=== PATIENT | male | born 1940 | race Caucasian/White ===

== ENCOUNTER 2017-05-27 08:14 | Outpatient (CLI) | payer MEDICARE ==
[~2017-05-27 08:14] MED LIST: Iopamidol 370 76% 100 ML VIAL ONE
--- NOTE | 2017-05-27 10:33 | CT ---
CT ABDOMEN WITH AND WITHOUT CONTRAST: 05/27/2017 HISTORY: Mildly enlarging, complex left renal cyst, measuring up to 1.5 cm, noted on recent CT exam. History of prior right renal lesion, surgically removed. COMPARISON: 04/25/2009 TECHNIQUE: Serial axial CT imaging obtained at 5 mm intervals through the abdomen, with and without IV contrast, using a renal mass protocol. Coronal reformatted imaging of the nephrographic phase provided. FINDINGS: The imaged lung bases appear unremarkable. The liver, gallbladder, spleen, pancrease, and adrenal glands are unremarkable. The right kidney demonstrates a mild/subtle area of cortical thinning, laterally, likely postoperativ e in nature. There is a tiny hypodensity emanating from the upper pole of the right kidney, too small to fully yolanda racterize, measuring in the 6 mm range, unchanged when compared to the 2008 exam, suggesting a probab le tiny cyst. No stone, hydronephrosis, or suspicious mass seen involving the right kidney. There is a low density lesion in the lateral mid pole left kidney, measuring up to 1.5 cm. Pre-contr ast Hounsfield units of this lesion are 8-9. In the nephrographic phase imaging, its Hounsfield unit s measure in the 12-13 range. In the urographic phase, its Hounsfield units measure in the 9-10 rang e, consistent with no significant enhancement. The urographic phase imaging of the abdomen is unremarkable bilaterally. There is scattered atherosclerotic calcification of the abdominal aorta and its branches. There is n o lymphadenopathy apparent within the abdomen, and no acute osseous abnormality is seen. There is mu ltilevel significant degenerative change involving the thoracic spine and imaged lumbar spine, with n o worrisome lytic or blastic bone lesions. IMPRESSION: Low density mid pole left renal lesion with no appreciable enhancement, measuring up to 1.5 cm, most consistent with a cyst. Recommend continued followup via ultrasound. POS: [facility]
== END 2017-05-27 08:15 | disposition home or self-care (01) ==
LOC: CT 08:14
PROVIDERS: ATTEND Urology
DX: D30.01 Benign neoplasm of right kidney (principal); Q61.01 Congenital single renal cyst
CPT/HCPCS: 74170

== ENCOUNTER 2017-11-30 08:31 | Outpatient (CLI) | payer MEDICARE ==
[2017-11-30 08:48] LABS: #Eosinphils 0.4 thou/uL (0.0-0.7); #Lymphocytes 1.4 thou/uL (1.20-3.40); #Monocytes 0.5 thou/uL (0.11-0.59); #Neutrophils 2.9 thou/uL (1.40-6.50); %Basophils 0.9 % (0.0-1.0); %Eosinophils 7.9 % (0.0-10.0); %Lymphocytes 26.5 % (21.0-51.0); %Neutrophils 55.6 % (42.0-75.0); Hemoglobin 14.9 g/dL (14.0-18.0); Mean Corpuscular HGB CONC 34.3 g/dL (32.0-36.0); Mean Corpuscular Hemoglobin 31.1 pg (27.0-31.0); Mean Corpuscular Volume 90.7 fl (80.0-94.0); Mean Platelet Volume 6.2 fL (7.4-10.4); Platelet Count 151 thou/uL (130-400); RBC Distribution Width 12.3 % (11.5-14.5); Red Blood Cell (RBC) Count 4.78 mill/uL (4.70-6.10); White Blood Cell (WBC) Count 5.2 thou/uL (4.8-10.8)
[2017-11-30 08:49] LABS: Bilirubin Negative (Negative); Blood, Urine Negative (Negative); Clarity CLEAR (Clear); Glucose, Urine (Dipstick) Negative (Negative); Leukocyte Negative (Negative); Nitrite Negative (Negative); Protein, Urine (Dipstick) Negative (Neg-Trace); Specific Gravity, Urine 1.023 (1.002-1.036); Urobilinogen 0.2 mg/dL (0.2-1.0)
[2017-11-30 08:52] LABS: Bacteria/HPF None Seen HPF (None Seen); Hyaline Casts/LPF 0-3 HYALINE CAST LPF (0-3 Hyaline); RBC/HPF 0-3 HPF (0-3); Squamous Epithelial None Seen HPF (0-3); WBC/HPF 0-3 HPF (0-3)
[2017-11-30 09:06] LABS: Creatinine, Urine 120.81 mg/dL (63-166); Microalbumin Urine Less than 5.0 mg/dL (0.5-50.0)
[2017-11-30 09:14] LABS: ALT (SGPT) 17 U/L (8-55); AST (SGOT) 20 U/L (5-34); Albumin 4.1 g/dL (3.4-4.8); Alkaline Phosphatase 49 U/L (40-150); Anion Gap 9 mmol/L (10-20); BUN (Urea Nitrogen) 27 mg/dL (8.4-25.7); Bilirubin, Total 0.7 mg/dL (0.2-1.2); Calc. Creatinine Clearance 0 mL/min (70-130); Calcium 9.1 mg/dL (7.8-10.44); Carbon Dioxide 27 mmol/L (23-31); Cardiac Risk 3.1 (Less than 4.5); Chloride 106 mmol/L (98-107); Cholesterol 185 mg/dl (< 200 Desired); Estimated GFR-MDRD 69; Globulin 2.6 g/dL (2.4-3.5); Glucose 116 mg/dL (83-110); HDL Cholesterol 59 mg/dL (>60 Neg Risk); LDL Cholesterol, Calculated 114 mg/dL; Potassium 4.3 mmol/L (3.5-5.1); Protein, Total 6.7 g/dL (5.8-8.1); Sodium 138 mmol/L (136-145); Triglycerides 62 mg/dL (Less than 150)
== END 2017-11-30 08:32 ==
LOC: LAB 08:31
PROVIDERS: ATTEND Family Medicine
DX: E11.9 Type 2 diabetes mellitus without complications (principal)
CPT/HCPCS: 36415; 80053; 80061; 81001; 82043; 84443; 85025

== ENCOUNTER 2018-06-03 13:34 | Outpatient (CLI) | payer MEDICARE ==
--- NOTE | 2018-06-03 15:54 | ULT ---
ULTRASOUND RETROPERITONEUM COMPLETE: (RENAL) DATE: 06/03/2018. HISTORY: Followup renal cyst in a 77-year-old male. COMPARISON: Ultrasound of 05/20/2017. FINDINGS: The previously demonstrated approximately 1.5 x 1 x 1.4 cm cortical cyst at the left renal mid-lower pole, has increased in size to current dimensions of approximately 2.2 x 1.4 x 1.6 cm. It has lobula r margins. No obvious solid mass component is identified. Tiny echogenic foci at its border probabl y represents artifact rather than tiny calcifications. There is no hydronephrosis bilaterally. The right kidney measures approximately 11.5 x 5 x 7 cm. The left kidney measures approximately 13 x 5.5 x 5.5 cm. The urinary bladder volume is 45 mL at the time of this scan. IMPRESSION: Interval growth of left renal parenchymal lesion. This is still favored to be benign. Consider multi phase CT of abdomen with and without contrast, renal protocol. Alternatively, if there is a contrain dication to iodinated contrast, continued followup renal ultrasounds are recommended, beginning in 6- 12 months. JN R POS: [facility]
== END 2018-06-03 13:35 | disposition home or self-care (01) ==
LOC: BICULT 13:34
PROVIDERS: ATTEND Urology
DX: D30.01 Benign neoplasm of right kidney (principal); Q61.01 Congenital single renal cyst; R31.29 Other microscopic hematuria
CPT/HCPCS: 36415; 76770; 80048; 81003; 87086

== ENCOUNTER 2018-06-10 15:02 | Outpatient (CLI) | payer MEDICARE ==
[~2018-06-10 15:02] MED LIST changes: +ISOVUE-370 76%-LOCM 1 ML ONE; -Iopamidol 370 76% 100 ML VIAL ONE
--- NOTE | 2018-06-10 19:20 | CT ---
CT ABDOMEN WITH AND WITHOUT IV CONTRAST: 06/10/18 HISTORY: Complex renal cyst. FINDINGS: Comparison made with exam of 05/27/17. The lung bases are clear. No calcified gallstones are seen. The liver, spleen, and adrenal glands are normal. There are two cystic masses arising from the posterior aspect of the body of the pancreas measuring 1 1 and 8 mm respectively. These are new since the last exam. No calculi is seen in the kidneys or the visualized portions of the ureters. No hydroureteronephrosis is seen. The 6 mm low density lesion arising from the superior pole of the right kidney is stable. T he low density lesions in the left kidney are also stable. The 1.5 cm lesion in the lateral mid pole of the left kidney noted on the previous exam is stable without postcontrast enhancement and attenuat ion value of 5 Hounsfield units on the noncontrasted study. This is consistent with a cyst. The other tiny low density lesion in the left kidney is stable and likely a cyst as well. No free air, free fl uid or lymphadenopathy is seen in the abdomen. There are vascular calcifications without evidence of aneurysmal dilatation of the abdominal aorta. There are degenerative changes in the spine. IMPRESSION: 1. Stable renal cysts. 2. Small pancreatic cystic masses. These should be evaluated with endoscopic ultrasound. POS: [facility]
== END 2018-06-10 15:03 | disposition home or self-care (01) ==
LOC: BICCT 15:02
PROVIDERS: ATTEND Urology
DX: D30.00 Benign neoplasm of unspecified kidney (principal); N28.1 Cyst of kidney, acquired; K86.2 Cyst of pancreas
CPT/HCPCS: 74170

== ENCOUNTER 2019-06-01 08:47 | Outpatient (CLI) | payer MEDICARE ==
--- NOTE | 2019-06-01 11:56 | ULT ---
BILATERAL RENAL ULTRASOUND: Date: 06/01/19 HISTORY: Renal cyst follow-up. COMPARISON: 06/10/18 CT examination. FINDINGS: Real-time imaging of the right and left kidneys were performed. The right kidney measured 10.1 cm and the left kidney measured 12.7 cm in size. There was a lower pole left renal cyst identified measurin g 1.5 x 1.8 cm. No signs of obstruction of either kidney. No solid mass. Bladder region appears unrem arkable; it was incompletely distended. IMPRESSION: Approximately 1.5 x 1.8 cm lower pole left renal cyst. Otherwise unremarkable exam. POS: [facility]
== END 2019-06-01 08:48 | disposition home or self-care (01) ==
LOC: BICULT 08:47
PROVIDERS: ATTEND Urology
DX: N28.1 Cyst of kidney, acquired (principal); Z98.890 Other specified postprocedural states
CPT/HCPCS: 36415; 76770; 80048; 81003; 87086

== ENCOUNTER 2019-09-15 08:27 | Outpatient (CLI) | payer MEDICARE ==
--- NOTE | 2019-09-15 12:23 | CT ---
CT ABDOMEN WITH AND WITHOUT CONTRAST CT ABDOMEN AND PELVIS WITH CONTRAST ONLY: Multiple axial tomograms obtained through the abdomen pre and post IV contrast. Postcontrast images w ere obtained through the abdomen in arterial phase and through the abdomen and pelvis on portal venou s phase. INDICATION: Pancreatic cyst. Comparison made to previous CT abdomen dated 06/10/18. FINDINGS: The liver and spleen appear unremarkable. Lung bases are clear. There are two low density lesions along the posterior margin of the body of the pancreas which were d escribed on the 06/10/18 exam. These are again identified, probably best seen on the arterial phase s tudy. There is no change in size and appearance. They are adjacent to one another with the largest me dially measuring approximately 1.2 cm and the smaller measuring approximately 0.9 cm. Pancreas otherw ise unremarkable and stable in appearance. Adrenal glands normal. Kidneys unremarkable. There is a cyst in the left renal cortex mid pole measuring 2.0 cm, which has i ncreased slightly since the prior exam. There are other tiny subcentimeter low density foci seen in t he kidneys. A tiny exophytic cystic lesion from the superior pole of the right kidney is subcentimete r. No hydronephrosis. Small bowel loops appear normal. Aorta normal caliber with atherosclerotic change. Prominent stool th roughout the colon. Mild prostatic hypertrophy. No adenopathy. Prominent degenerative changes in the spine. There are degenerative changes at both hips. No acute osseous lesion. IMPRESSION: 1. The two low density probable cystic lesions along the posterior margin of the body of the pancrea s appear stable when compared to 06/10/18. 2. Small renal cystic lesions again noted as described. 3. No acute process. POS: [facility]
[2019-09-15] MEDS ORDERED: Iopamidol 370 76% 100 ML VIAL ONE (13:43)
== END 2019-09-15 08:28 | disposition home or self-care (01) ==
LOC: CT 08:27
PROVIDERS: ATTEND Internal Medicine Gastroenterology
DX: K86.2 Cyst of pancreas (principal); N28.89 Other specified disorders of kidney and ureter; N28.1 Cyst of kidney, acquired
CPT/HCPCS: 36415; 74178; 80053; 80061; 81001; 82043; 85025; Q9967

== ENCOUNTER 2020-06-28 08:55 | Outpatient (CLI) | payer MEDICARE ==
--- NOTE | 2020-06-28 09:29 | ULT ---
Exam: Bilateral renal ultrasound HISTORY: Renal cyst COMPARISON: 06/01/2019 FINDINGS: Right kidney: There is diffuse renal cortical thinning. No hydronephrosis. Right kidney measurements: 12.4 x 4.8 x 4.2 cm. Left kidney: Exophytic anechoic focus emanating from the left renal cortex compatible with a 1.9 x 2. 4 x 2.4 cm cyst. No hydronephrosis. Left kidney measurements 13.1 x 5.5 x 5.3 cm. Urinary bladder: Normal mucosa. IMPRESSION: 1. Left renal cortical cyst 2. No hydronephrosis.
== END 2020-06-28 08:56 | disposition home or self-care (01) ==
LOC: BICULT 08:55
PROVIDERS: ATTEND Urology
DX: N28.1 Cyst of kidney, acquired (principal); D30.01 Benign neoplasm of right kidney; Z98.890 Other specified postprocedural states
CPT/HCPCS: 36415; 76770; 80048; 81001

== ENCOUNTER 2021-06-30 08:11 | Outpatient (CLI) | payer MEDICARE | END 2021-06-30 08:12 | disposition home or self-care (01) | LOC: CT 08:11 | PROVIDERS: ATTEND Urology | DX: D30.00 Benign neoplasm of unspecified kidney (principal); N28.1 Cyst of kidney, acquired; N28.89 Other specified disorders of kidney and ureter; Z98.890 Other specified postprocedural states; R31.29 Other microscopic hematuria; D30.01 Benign neoplasm of right kidney | CPT/HCPCS: 36415; 74170; 80048; 81001; 82565 ==

== ENCOUNTER 2022-04-05 13:05 | Outpatient (CLI) | payer MEDICARE | END 2022-04-05 13:06 | disposition home or self-care (01) | LOC: DTY/OP 13:05 | PROVIDERS: ATTEND Family Medicine | DX: E11.9 Type 2 diabetes mellitus without complications (principal) | CPT/HCPCS: 97802 ==

== ENCOUNTER 2023-09-18 15:42 | Outpatient (CLI) | payer MEDICARE | END 2023-09-18 15:43 | disposition home or self-care (01) | LOC: ULT 15:42 | PROVIDERS: ATTEND Urology | DX: N28.1 Cyst of kidney, acquired (principal); N28.9 Disorder of kidney and ureter, unspecified; Z98.890 Other specified postprocedural states | CPT/HCPCS: 76770 ==